=== PATIENT | female | born 1985 | race Caucasian/White ===

== ENCOUNTER 2018-06-10 07:03 | Day surgery (SDC) | payer OTHER ==
[2018-06-10 08:38] LABS: ADD MAN DIFF? NO
[2018-06-10 08:52] LABS: WHITE BLOOD COUNT 6.2 10^3/ul (4.8-10.8)
[2018-06-10 08:52] LABS: BASOPHILS % 0.2 % (0.0-2.0); EOSINOPHILS # 0.1 10^3/ul (0.0-0.5); EOSINOPHILS % 1.8 % (0.0-7.0); HEMATOCRIT 43.9 % (37.0-47.0); HEMOGLOBIN 14.6 g/dl (12.0-16.0); LYMPHOCYTES # 2.2 10^3/ul (0.8-2.9); LYMPHOCYTES % 35.1 % (15.0-51.0); MEAN CORPUSCULAR HEMOGLOBIN 29.9 pg (29.0-33.0); MEAN CORPUSCULAR HGB CONC 33.3 g/dl (32.0-37.0); MEAN PLATELET VOLUME 10.7 fl (7.4-10.4); MONOCYTE # 0.5 10^3/ul (0.3-0.9); MONOCYTES % 7.7 % (0.0-11.0); NEUTROPHIL # 3.4 10^3/ul (1.6-7.5); NEUTROPHILS % 54.7 % (39.0-77.0); PLATELET COUNT 202 10^3/UL (140-415); RED BLOOD COUNT 4.88 10^6/ul (4.20-5.40); RED CELL DISTRIBUTION WIDTH 12.6 % (11.5-14.5)
[2018-06-10 09:06] LABS: INR 0.88; PT RATIO 0.9
[2018-06-10 09:07] LABS: PARTIAL THROMBOPLASTIN TIME 32.9 Sec (23.0-35.0)
[2018-06-10 09:12] LABS: ALANINE AMINOTRANSFERASE 21 IU/L (13-69); ALBUMIN 4.1 g/dl (3.3-4.9); ALBUMIN/GLOBULIN RATIO 1.17; ALKALINE PHOSPHATASE 72 IU/L (42-121); ANION GAP 10 (5-13); ASPARTATE AMINO TRANSFERASE 22 IU/L (15-46); BILIRUBIN,INDIRECT 0.8 mg/dl (0-1.1); BILIRUBIN,TOTAL 0.8 mg/dl (0.2-1.3); BLOOD UREA NITROGEN 12 mg/dl (7-20); CALCIUM 9.1 mg/dl (8.4-10.2); CARBON DIOXIDE 26 mmol/L (21-31); CHLORIDE 108 mmol/L (97-110); CREATININE 0.57 mg/dl (0.44-1.00); Estimated GFR > 60 mL/min (>60); GLUCOSE 93 mg/dl (70-220); POTASSIUM 4.4 mmol/L (3.5-5.1); SODIUM 144 mmol/L (135-144); TOTAL PROTEIN 7.6 g/dl (6.1-8.1)
[2018-06-10] MEDS ORDERED: MIDAZOLAM 1 MG/ML 2 ML INJ (09:50)
[2018-06-10] MEDS ORDERED: CEFAZOLIN 1 GM INJ (09:50)
[2018-06-10] MEDS ORDERED: ONDANSETRON 4 MG INJ (09:50)
[2018-06-10] MEDS ORDERED: FENTAnyl 50 MCG/ML VIAL (09:50)
[2018-06-10] MEDS ORDERED: GLYCOPYRROLATE 0.4 MG INJ (09:50)
[2018-06-10] MEDS ORDERED: PROPOFOL 20 ML (09:50)
[2018-06-10] MEDS ORDERED: NEOSTIGMINE 3 MG/3 ML SYRINGE (09:50)
[2018-06-10] MEDS ORDERED: ROCURONIUM 50 MG INJ (09:50)
[2018-06-10] MEDS ORDERED: DEXAMETHASONE 4 MG/ML 5 ML INJ (09:51)
[2018-06-10] MEDS ORDERED: SOD CHLORIDE 0.9% 1,000 ML IV (10:00)
[2018-06-10] MEDS ORDERED: CEFAZOLIN 2 GM/50 ML (PMX) 50 ML IVPB (10:00)
[2018-06-10] MEDS ORDERED: HYDROmorphONE 1 MG/5 ML IV SYRINGE IV ×3 (10:30→11:53)
[2018-06-10] MEDS ORDERED: LABETALOL HCL 20MG INJ IV (10:30)
[2018-06-10] MEDS ORDERED: MIDAZOLAM 1 MG/ML 2 ML INJ IV (10:30)
[2018-06-10] MEDS ORDERED: EPHEDrine SULFATE 50 MG/5 ML SYG IV (10:30)
[2018-06-10] MEDS ORDERED: ONDANSETRON 4 MG INJ IV (10:30)
[2018-06-10] MEDS ORDERED: IPRATROPIUM (NEB) 0.5 MG/2.5 ML AMP HHN (10:30)
[2018-06-10] MEDS ORDERED: hydrALAzine 20 MG INJ IV (10:30)
[2018-06-10] MEDS ORDERED: DIPHENHYDRAMINE 50 MG INJ IV (10:30)
[2018-06-10] MEDS ORDERED: MEPERIDINE 25 MG INJ IV (10:30)
[2018-06-10] MEDS ORDERED: OXYCODONE/ACETAMINOPHEN (5/325) TAB PO ×2 (10:30)
[2018-06-10] MEDS ORDERED: ALBUTEROL 0.083% (NEB) 2.5 MG/3 ML AMP HHN (10:30)
[2018-06-10] MEDS ORDERED: FENTAnyl 50 MCG/ML VIAL IV ×3 (10:30)
[2018-06-10] MEDS ORDERED: TRIMETHOBENZAMIDE 100 MG/ML VIAL IM (10:30)
[2018-06-10] MEDS: BUPIVACAINE 0.25% (MPF) 30 ML INJ (10:50)
[2018-06-10] MEDS ORDERED: MEPERIDINE 25 MG INJ (11:45)
[2018-06-10] MEDS ORDERED: HYDROCODONE/APAP (5/325) TAB (11:54)
[2018-06-10] MEDS: HYDROmorphONE 1 MG/5 ML IV SYRINGE IV (12:00)
[2018-06-10] MEDS: HYDROCODONE/APAP (5/325) TAB PO (12:02)
== END 2018-06-10 13:50 | disposition home or self-care (01) ==
LOC: SDS 07:03
DX: M67.431 Ganglion, right wrist (principal)
CPT/HCPCS: 25111; 80053; 84703; 85025; 85610; 85730; 88304